=== PATIENT | female | born 1975 | race Caucasian/White ===

== ENCOUNTER 2017-06-06 10:38 | Emergency (ER) | payer OTHER ==
[2017-06-06 12:13] VITALS: BP 124/79
--- NOTE | 2017-06-06 12:13 | UC ---
Ear Complaint HPI - HPI Summary HPI Summary: 41 y/o female presents to the urgent care c/o left ear pain, decrease hearing since yesterday . Pt reports she had mild nasal congestion for the past week. She has HX of recurrent otitis. Pt denies fever, cough, HICKS, chest pain, N/V/D - History of Current Complaint Stated Complaint: LEFT EAR COMPLAINT Time Seen by Provider: 06/06/17 12:12 Hx Obtained From: Patient Hx Last Menstrual Period: 11/06/13 ?: No Onset/Duration: Gradual Onset, Lasting Days - 1 day, Still Present Severity Initially: Moderate Severity Currently: Moderate Pain Intensity: 6 Pain Scale Used: 0-10 Numeric Aggravating Factors: Nothing Alleviating Factors: Nothing Associated Signs/Symptoms: Positive: Hearing Loss, URI Symptoms - Allergies/Home Medications Allergies/Adverse Reactions: Allergies Allergy/AdvReac Type Severity Reaction Status Date / Time Sulfa Antibiotics Allergy Rash Verified 06/06/17 12:06 Home Medications: Home Medications Thyroid Med ? Name 1 tab PO DAILY 06/06/17 [History] PMH/Surg Hx/FS Hx/Imm Hx Previously Healthy: Yes Endocrine History: Hypothyroidism - Surgical History Surgical History: Yes Surgery Procedure, Year, and Place: LEEP, ESSURE - Family History Known Family History: Positive: Hypertension - Social History Occupation: Employed Full-time Lives: With Family Alcohol Use: Weekly Substance Use Type: None Smoking Status (MU): Light Every Day Tobacco Smoker Type: Cigarettes Amount Used/How Often: 4-5 CIGS DAILY Review of Systems Constitutional: Negative Skin: Negative Eyes: Negative ENT: Ear Ache - left ear, Nasal Discharge Respiratory: Negative Cardiovascular: Negative Gastrointestinal: Negative Genitourinary: Negative Motor: Negative Neurovascular: Negative Musculoskeletal: Negative Neurological: Negative Psychological: Negative Is Patient Immunocompromised?: No All Other Systems Reviewed And Are Negative: Yes Physical Exam Triage Information Reviewed: Yes - Additional Comments Vital signs: reviewed General: well develop, well nourished female sitting inthe examining table w/o any apparent distress. Skin: [place], warm and dry, no evidence of atopic dermatitis, psoriasis, seborrhea. HEENT: -Head: atraumatic, non tender; no scalp dermatitis. -Eyes: sclera and conjunctiva clear, PERRLA, EOMI -Ears: no pre- or postauricular lymphadenopathy or erythema; RT external ear canal clear Rt TM WNL, LF external ear canal clear and LF TM with erythema and purulent discharge. No fluid level, vesicles, or bullae. No perforation. -Nose/Face: erythematous and edematous nasal mucosa with clear rhinorrhea, no frontal or maxillary sinus tender to palpation. -Mouth/Throat: Mucous membrane moist, posterior pharynx clear, no erythema or exudates. Neck: supple, FROM, nontender, no lymphadenopathy, no meningismus. Chest: Clear to auscultation, normal breath sounds Abd: soft, Bowel sounds active, Nontender. Back: no spinal or CVAT Neuro: A&O x4, GCS 15, no focal neuro deficits, normal behavior for age. Skin: war and dry Ear Complaint Course/Dx - Course Course Of Treatment: 41 y/o female presents to the urgent care c/o left ear pain , decrease hearing since yesterday . Pt reports she had mild nasal congestion for the past week. She has HX of recurrent otitis. Pt denies fever, cough, HICKS, chest pain, N/V/D. Hx obtained. Pt with left otitis media on examination. Pt Rx Amoxicillin PO and ibuprofen for pain. Advised If symptoms do not improve or worsen to return to the urgent care or f/u with PCP for further management. Pt understood and agreed with D/C instructions. - Differential Dx/Diagnosis Differential Diagnosis/HQI/PQRI: Cerumen Impaction, Mastoiditis, Otitis Externa , Otitis Media, Perforated TM, URI Provider Diagnoses: 1- Left acute otitis media. 2- Otalgia Discharge - Discharge Plan Condition: Stable Disposition: HOME Prescriptions: Amoxicillin PO (*) [Amoxicillin 875 MG (*)] 875 mg PO BID #20 tab Ibuprofen TAB* [Motrin TAB* 800 MG] 800 mg PO Q6H #20 tab Patient Education Materials: Otitis Media (ED) Referrals: LEX Blackburn [Medical Doctor] - If Needed Additional Instructions: 1-Please take full course of antibiotic as directed to avoid any resistance 2-Take ibuprofen PO after meals for pain. 3-If symptoms do not improve or worsen please f/u with your PCP or return to the urgent care for further evaluation and treatment.
== END 2017-06-06 12:33 | disposition home or self-care (01) ==
LOC: UCCORT 10:38
DX: H66.92 Otitis media, unspecified, left ear (principal); R09.81 Nasal congestion; E03.9 Hypothyroidism, unspecified; Z88.2 Allergy status to sulfonamides; F17.210 Nicotine dependence, cigarettes, uncomplicated
CPT/HCPCS: 99212; G0463